=== PATIENT | female | born 1980 | race Two or more races ===

== ENCOUNTER 2017-11-21 20:54 | Emergency (ER) | payer SELFPAY ==
[~2017-11-21] VITALS: Ht 167.6 cm; Wt 121.1 kg
[2017-11-21 21:54] LABS: Urine Amorphous Crystal FEW /hpf (None Seen); Urine Bacteria NONE SEEN /hpf (None Seen); Urine Blood Negative /uL (Negative); Urine Mucus FEW (None Seen); Urine Specific Gravity 1.019 (1.001-1.035); Urine WBC 1 /hpf (0 - 5)
[2017-11-21 22:05] LABS: Eosinophils # (auto) 0.1 uL
[2017-11-21 22:07] LABS: Basophils # (auto) 0.1 uL; Basophils % (auto) 0.5 % (0.0-2.0); Eosinophils % (auto) 0.6 % (0.0-7.0); Hematocrit 26.3 % (36.0-46.0); Lymphocytes # (auto) 1.7 uL; Lymphocytes % (auto) 11.5 % (10.0-50.0); Mean Corpuscular Hemoglobin 19.4 pg (28.0-32.0); Mean Corpuscular Hgb Conc. 30.3 g/dL (32.0-36.0); Mean Corpuscular Volume 64.1 fL (80.0-100.0); Monocytes # (auto) 1.1 uL; Monocytes % (auto) 7.9 % (0.0-12.0); Neutrophils # (auto) 11.5 uL; Neutrophils % (auto) 79.5 % (37.0-80.0); Platelet Count (auto) 502 10^3/uL (140-450); White Blood Cell 14.4 10^3/uL (4.4-10.8)
[2017-11-21 22:08] LABS: Red Cell Distribution Width 20.7 % (11.8-14.3)
[2017-11-21 22:18] LABS: Alanine Aminotransferase 15 U/L (13-56); Albumin 3.3 g/dL (3.4-5.0); Alkaline Phosphatase 80 U/L (45-117); Anion Gap 8 (5-15); Aspartate Aminotransferase 6 U/L (15-37); BUN/Creatinine Ratio 26.7; Bilirubin, Total 0.2 mg/dL (0.2-1.0); Blood Urea Nitrogen 16 mg/dL (7-18); Calcium 8.4 mg/dL (8.5-10.1); Carbon Dioxide 23 mmol/L (21-32); Chloride 111 mmol/L (98-107); GFR African American 145 mL/min; GFR Non-African American 120 mL/min; Glucose 141 mg/dL (74-106); Magnesium 2.6 mg/dL (1.6-2.6); Potassium 3.7 mmol/L (3.5-5.1); Sodium 142 mmol/L (136-145); Total Protein 8.3 g/dL (6.4-8.2)
[2017-11-21 22:38] LABS: INR 0.92 (0.9-1.15); Partial Thromboplastin Time 25.1 sec (23.78-33.04); Prothrombin Time 9.9 sec (9.27-12.13)
[2017-11-22] MEDS ORDERED: SODIUM CHLORIDE 0.9% 1,000 ML IV ONE (02:00)
[2017-11-22] MEDS ORDERED: ONDANSETRON HCL 4 MG/2 ML VIAL IV ONE (02:00)
[2017-11-22] MEDS ORDERED: NALBUPHINE HCL 10 MG/1ml INJECTION IV ONE (02:00)
[2017-11-22 02:30] VITALS: BP 123/60
== END 2017-11-22 04:21 | disposition home or self-care (01) ==
LOC: ER 20:54
DX: R07.89 Other chest pain (principal); F41.9 Anxiety disorder, unspecified
CPT/HCPCS: 36415; 71045; 80053; 81001; 81025; 83735; 84443; 84484; 85025; 85610; 85730; 96374; 96375; 99285; J2300; J2405; J7030

== ENCOUNTER 2018-08-31 21:35 | Emergency (ER) | payer SELFPAY ==
[~2018-08-31] VITALS: Ht 167.6 cm; Wt 119.3 kg
[2018-08-31 23:17] LABS: Basophils # (auto) 0.1 uL; Eosinophils # (auto) 0.2 uL; Monocytes # (auto) 0.9 uL
[2018-08-31 23:19] LABS: Basophils % (auto) 0.4 % (0.0-2.0); Eosinophils % (auto) 1.4 % (0.0-7.0); Hematocrit 33.4 % (36.0-46.0); Lymphocytes # (auto) 2.1 uL; Lymphocytes % (auto) 15.3 % (10.0-50.0); Mean Corpuscular Hemoglobin 20.9 pg (28.0-32.0); Mean Corpuscular Hgb Conc. 29.8 g/dL (32.0-36.0); Mean Corpuscular Volume 70.1 fL (80.0-100.0); Monocytes % (auto) 6.7 % (0.0-12.0); Neutrophils # (auto) 10.3 uL; Neutrophils % (auto) 76.2 % (37.0-80.0); Nucleated Red Blood Cells % 0.1 %; Platelet Count (auto) 494 10^3/uL (140-450); Red Blood Cells 4.77 10^6/uL (4.0-5.20); Red Cell Distribution Width 17.8 % (11.8-14.3); White Blood Cell 13.5 10^3/uL (4.4-10.8)
[2018-08-31 23:30] LABS: INR 0.9 (0.9-1.15); Partial Thromboplastin Time 26.6 sec (23.78-33.04); Prothrombin Time 9.7 sec (9.27-12.13)
[2018-08-31 23:37] LABS: Albumin 3.2 g/dL (3.4-5.0); Potassium 3.8 mmol/L (3.5-5.1)
[2018-08-31 23:41] LABS: BUN/Creatinine Ratio 18.2; Bilirubin, Total 0.1 mg/dL (0.2-1.0); Total Protein 7.6 g/dL (6.4-8.2)
[2018-09-01] MEDS ORDERED: SODIUM CHLORIDE 0.9% 1,000 ML IVB ONE (08:15)
[2018-09-01 09:15] LABS: Magnesium 2.3 mg/dL (1.6-2.6)
[2018-09-01 10:18] LABS: Urine WBC None Seen /hpf (0 - 5)
[2018-09-01 10:43] LABS: Urine Bacteria FEW /hpf (None Seen); Urine Blood Negative /uL (Negative); Urine Specific Gravity 1.005 (1.001-1.035)
[2018-09-01 10:56] VITALS: BP 118/83
[2018-09-01] MEDS ORDERED: medroxyPROGESTERone ACETATE 5 MG TAB PO ONE (13:45)
== END 2018-09-01 14:41 | disposition home or self-care (01) ==
LOC: ER 21:42
DX: N93.8 Other specified abnormal uterine and vaginal bleeding (principal); E11.9 Type 2 diabetes mellitus without complications; E66.9 Obesity, unspecified; E46 Unspecified protein-calorie malnutrition; D50.0 Iron deficiency anemia secondary to blood loss (chronic); Z68.41 Body mass index [BMI] 40.0-44.9, adult
CPT/HCPCS: 36415; 76856; 80053; 81001; 83690; 83735; 84443; 84702; 85025; 85610; 85730; 86850; 86900; 86901; 99284; J7030

== ENCOUNTER 2018-09-07 15:16 | Emergency (ER) | payer MEDICAID, OTHER ==
[~2018-09-07] VITALS: Ht 167.6 cm; Wt 111.6 kg
[2018-09-07 15:42] VITALS: BP 118/67
[2018-09-07 16:01] LABS: Eosinophils # (auto) 0.1 uL; Neutrophils # (auto) 8.9 uL; White Blood Cell 12.2 10^3/uL (4.4-10.8)
[2018-09-07 16:03] LABS: Basophils # (auto) 0 uL; Basophils % (auto) 0.3 % (0.0-2.0); Eosinophils % (auto) 0.7 % (0.0-7.0); Hematocrit 32.8 % (36.0-46.0); Hemoglobin 10.1 g/dL (12.2-16.2); Lymphocytes # (auto) 2.3 uL; Lymphocytes % (auto) 18.7 % (10.0-50.0); Mean Corpuscular Hemoglobin 21.1 pg (28.0-32.0); Mean Corpuscular Hgb Conc. 30.6 g/dL (32.0-36.0); Mean Corpuscular Volume 68.9 fL (80.0-100.0); Monocytes # (auto) 0.8 uL; Monocytes % (auto) 6.9 % (0.0-12.0); Neutrophils % (auto) 73.4 % (37.0-80.0); Platelet Count (auto) 517 10^3/uL (140-450); Red Blood Cells 4.77 10^6/uL (4.0-5.20); Red Cell Distribution Width 17.9 % (11.8-14.3)
[2018-09-07 16:06] LABS: Potassium 3.7 mmol/L (3.5-5.1)
[2018-09-07 16:09] LABS: Albumin 3.4 g/dL (3.4-5.0); Calcium 8.7 mg/dL (8.5-10.1)
[2018-09-07 16:13] LABS: BUN/Creatinine Ratio 22.4; Bilirubin, Total 0.2 mg/dL (0.2-1.0); Total Protein 8.1 g/dL (6.4-8.2)
== END 2018-09-07 19:10 | disposition left against medical advice (07) ==
LOC: ER 15:23
DX: R07.89 Other chest pain (principal)
CPT/HCPCS: 36415; 71046; 80053; 83690; 85025; 93005

== ENCOUNTER 2020-04-19 12:31 | Emergency (ER) | payer SELFPAY ==
[~2020-04-19] VITALS: Ht 170.2 cm; Wt 135.6 kg
[2020-04-19 16:04] VITALS: BP 128/53
== END 2020-04-19 16:08 | disposition home or self-care (01) ==
LOC: ER 12:31
DX: J18.9 Pneumonia, unspecified organism (principal); Z20.828 Contact with and (suspected) exposure to other viral communicable diseases
CPT/HCPCS: 36415; 71045; 87426